=== PATIENT | male | born 1980 | race Hispanic/Latino ===

== ENCOUNTER 2019-01-26 15:13 | Emergency (ER) | payer OTHER ==
[2019-01-26] MEDS ORDERED: ACETAMINOPHEN EXTRA STRENGTH 500 MG TABLET ONE (15:35)
== END 2019-01-26 15:50 | disposition home or self-care (01) ==
LOC: EDH 15:13
DX: S63.91XA Sprain of unspecified part of right wrist and hand, initial encounter (principal); E11.9 Type 2 diabetes mellitus without complications; Z88.6 Allergy status to analgesic agent; Z72.0 Tobacco use; X50.1XXA Overexertion from prolonged static or awkward postures, initial encounter; Y93.89 Activity, other specified; Y92.89 Other specified places as the place of occurrence of the external cause; Y99.8 Other external cause status
CPT/HCPCS: 73130

== ENCOUNTER 2025-04-30 11:34 | Emergency (ER) | payer BC ==
[~2025-04-30] VITALS: Ht 188 cm; Wt 104.3 kg
--- NOTE | 2025-04-30 11:42 | ERN ---
ED Note History of Present Illness Stated Complaint: OTHER Time Seen by MD: 11:36 Dictation: PATIENT IS A 44-YEAR-OLD MALE COMING IN FOR MEDICAL CLEARANCE AGO TO [facility]. PER EMS AND THE PATIENT, HE DID NOT TAKE HIS BLOOD PRESSURE MEDICATIONS THIS MORNING. HIS DID NOT BRING HIM TO HIM IN THE [facility] WHERE HE IS CURRENTLY BEING HELD. HE HAS A HISTORY OF DIABETES HYPERTENSION. HE WAS SEEN HERE LAST NIGHT FOR THE SAME COMPLAINTS AND HAD A CARDIAC CLEARANCE WITH CARDIAC ENZYMES AND EKG X2 WITH LABS. HE IS NOW BEING CLEARED FOR [facility]. NO OTHER COMPLAINTS OF VOICE ACCEPT FOR HYPERTENSION. ADDITIONALLY PATIENT HAS A HISTORY OF ADD IN HIS ON ADDERALL WHICH CONTRIBUTES TO HIS HYPERTENSION. Allergies: Coded Allergies: aspirin (Unverified Allergy, Intermediate, 04/30/25) Past Medical History Past Medical History: Diabetes-Type II, Hypertension, Other (ADD) Surgical History: None RN Note Reviewed/Agreed w/PFSH: Yes Review of System Dictation CONSTITUTIONAL: NEGATIVE EXCEPT FOR HPI HEAD/FACE: NEGATIVE EXCEPT FOR HPI EENT: NEGATIVE EXCEPT FOR HPI RESPIRATORY: NEGATIVE EXCEPT FOR HPI GASTROINTESTINAL/ABDOMINAL: NEGATIVE EXCEPT FOR HPI GENITOURINARY: NEGATIVE EXCEPT FOR HPI MUSCULOSKELETAL: NEGATIVE EXCEPT FOR HPI INTEGUMENTARY: NEGATIVE EXCEPT FOR HPI NEUROLOGICAL/PSYCH: NEGATIVE EXCEPT FOR HPI HEMATOLOGIC/LYMPHATIC: NEGATIVE EXCEPT FOR HPI ALL SYSTEMS NEGATIVE, EXCEPT NOTED ABOVE. 13 POINT REVIEW OF SYSTEMS ASSESSED AND ALL NEGATIVE EXCEPT FOR ABOVE. Initial Vital Sign VS Vital Signs Date Time Temp Pulse Resp B/P (MAP) Pulse Ox O2 Delivery O2 Flow Rate FiO2 04/30/25 11:48 98.2 71 20 210/117 99 Room Air 0 04/30/25 13:44 21 Physical Exam Dictation VITAL SIGNS REVIEWED GENERAL APPEARANCE: ALERT, ORIENTED X 3, NO ACUTE DISTRESS, WELL DEVELOPED, NOURISHED. HEAD AND FACE: NON-TRAUMATIC. EYES: PERRL, PINK CONJUNCTIVAS, EYELID NO TRAUMA, ANTERIOR CHAMBER WITH ARCUS SENILIS. EARS: PINNAS INTACT AND NO SIGNS OF TRAUMA OR ERYTHEMA EAR CANALS CLEAR AND NO DISCHARGE TM NO ERYTHEMA NOSE: NO DISCHARGE, NO BLEEDING. OROPHARYNX: MOUTH NORMAL, TONGUE PINK, PHARYNX CLEAR,NO ERYTHEMA, TONSILS NO EXUDATES, NO ABSCESSES NOTED, MUCOUS MEMBRANE MOIST NECK: SUPPLE, NON-TENDER, NO THYROMEGALY, NO MASSES, NO JVD, NO BRUITS BREAST:DEFERRED CHEST:NO TENDERNESS, NO CREPITUS, NO PARADOXICAL MOVEMENT, NO RETRACTIONS LUNGS:CLEAR, WELL-VENTILATED, SYMMETRIC, NO RALES, NO WHEEZING, NO RHONCHI, NO STRIDOR, GOOD BREATH SOUNDS BILATERALLY HEART: REGULAR RATE, REGULAR RHYTHM, NO MURMUR, NO GALLOPS VASCULAR: NO PERIPHERAL EDEMA, ABDOMEN: SOFT, POSITIVE BOWEL SOUNDS, NONDISTENDED, NO GUARDING, NONTENDER, NO REBOUND, NO MASSES NO HEPATOMEGALY, NO SPLENOMEGALY, NO LEE'S SIGN, NO HERNIAS. RECTAL: DEFERRED GENITAL: DEFERRED NEUROLOGICAL: NORMAL SPEECH, MOTOR FUNCTION INTACT, SENSORY FUNCTION INTACT MUSCULOSKELETAL: NECK NONTENDER, FULL RANGE OF MOTION, BACK NONTENDER, FULL RANGE OF MOTION, EXTREMITIES: NONTENDER, FULL RANGE OF MOTION SKIN: COLOR PINK, DRY, NO TURGOR, NO RASH, NO LACERATIONS, NO ABRASIONS, NO CONTUSIONS. LYMPHATIC: DEFERRED Results (Laboratory/Radiology) Laboratory/Radiology Laboratory Tests Test 04/30/25 12:04 Troponin I High Sensitivity 14 ng/L (4-75) Labs Reviewed?: Yes EKG: (+) NSR EKG Comment: EKG NORMAL SINUS RHYTHM/HEART RATE 88/AXIS NORMAL/NO ECTOPY ED Course ED Course Orders Procedure Category Date Status Time 12 Lead Ekg Tracing- EKG 04/30/25 Complete Technical 11:37 Clonidine Hcl 0.2 Mg PHA 04/30/25 Complete Tablet (Catapres 0. 12:00 Troponin I High LAB 04/30/25 Complete Sensitivity 11:54 Clonidine Hcl 0.1 Mg PHA 04/30/25 Complete Tablet (Catapres 0. 12:30 Clonidine Hcl 0.1 Mg PHA 04/30/25 Complete Tablet (Catapres 0. 13:00 Current Medications Medications (Trade) Dose Ordered Sig/Angel Route PRN Reason Start Time Stop Time Status Last Admin Dose Admin Clonidine HCl (CATApres 0.1 mg TAB) 0.1 mg ONCE ONCE PO 04/30/25 12:30 04/30/25 12:31 DC 04/30/25 12:14 Clonidine HCl (CATApres 0.1 mg TAB) 0.1 mg ONCE ONCE PO 04/30/25 13:00 04/30/25 13:01 DC 04/30/25 12:56 Clonidine HCl (CATApres 0.2 MG TAB) 0.2 mg ONCE ONCE PO 04/30/25 12:00 04/30/25 12:09 DC Vital Signs Date Time Temp Pulse Resp B/P (MAP) Pulse Ox O2 Delivery O2 Flow Rate FiO2 04/30/25 13:44 98.2 72 20 155/79 99 Room Air* 0 21 04/30/25 12:56 192/94 04/30/25 12:14 165/92 04/30/25 11:48 98.2 71 20 210/117 99 Room Air 0 1345/BLOOD PRESSURE 155/79 CARDIAC WORKUP NEGATIVE WE WILL DISCHARGE PATIENT AND MEDICALLY CLEAR HIM FOR INCARCERATION AND [facility]. HEART Score Response (Comments) Value History: Low suspicion (0) 0 Age: 45-65yrs (+1) 1 Risk Factors: No known risk factors (0) 0 Total 1 Medical Decision Making MDM MEDICAL DISCHARGE MAKING BASED ON TROPONIN AND EKG WITH CONTROLLED PATIENT'S BLOOD PRESSURE PATIENT GIVEN CLONIDINE 0.2, BLOOD PRESSURE 155 OVER 79 AFTER TREATMENT. EKG NORMAL SINUS RHYTHM WITH TROPONIN NORMAL. MEDICALLY CLEARED FOR [facility] WITH CLONIDINE 0.2 B.I.D. DX & DISP Disposition: Discharge Departure Impression: Primary Impression: Accelerated hypertension Additional Impressions: Anxiety, Atypical chest pain, Medical clearance for incarceration Condition: Stable Scripts Clonidine HCl (Clonidine HCl) 0.2 Mg Tablet 1 TAB PO BID for 30 Days, #60 TAB 0 Refills Prov: BRENDAN SAHNI LEAD PRINCIPAL TECHNICAL ARCHITECT 04/30/25 Additional Instructions: FOLLOW-UP WITH PRIMARY CARE PROVIDER IN 1 TO 2 DAYS. TAKE MEDICATIONS DIRECTED HERE IN THE EMERGENCY ROOM. OKAY TO CONTINUE HOME MEDICATIONS UNLESS OTHERWISE DISCUSSED DURING YOUR VISIT IN THE EMERGENCY ROOM TODAY. RETURN TO YOUR NEAREST EMERGENCY ROOM IF SYMPTOMS WORSEN OR IF THERE IS NO IMPROVEMENT. CALL 911 IF YOU NEED IMMEDIATE ASSISTANCE. TAKE TYLENOL OR MOTRIN [id number] NEEDED AND IF NO CONTRAINDICATIONS ARE PRESENT. INCREASE ORAL HYDRATION. A WOUND CULTURE OR URINE CULTURE WAS ORDERED HERE IN THE EMERGENCY ROOM DEPARTMENT PLEASE FOLLOW-UP WITH PRIMARY CARE PROVIDER AND ADVISE THEM TO GET REPEAT PORTS FROM OUR FACILITY. IF YOU HAD ANY KAYLIN WRAP/SPLINTS THAT WERE APPLIED HERE, PLEASE DO NOT REMOVE THEM UNTIL YOU SEE YOUR PRIMARY CARE OR SPECIALTY. TAKE CLONIDINE DIRECTED TWICE A DAY FOR YOUR BLOOD PRESSURE. CONTINUE ALL YOUR MEDICATIONS AT HOME FOR YOUR DIABETES. MEDICALLY CLEARED FOR INCARCERATION AND TRAVEL. Referrals: SELF,REFERRAL (PCP) Time of Disposition: 13:48 I have reviewed the case, and I agree with, Diagnosis and Plan BRENDAN SAHNI NP Apr 30, 2025 11:42
--- NOTE | 2025-04-30 11:46 | EKG ---
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
[2025-04-30 13:44] VITALS: BP 155/79; PULSE 72; RESP 20; TEMP 98.2; O2SAT 99
[2025-04-30] MEDS ORDERED: CLON0.2T PO (13:49)
== END 2025-04-30 14:06 | disposition home or self-care (01) ==
LOC: EEVIPCON 11:34 → EDH 11:34
DX: I10 Essential (primary) hypertension (principal); F41.9 Anxiety disorder, unspecified; R07.89 Other chest pain; E11.9 Type 2 diabetes mellitus without complications; Z88.6 Allergy status to analgesic agent
CPT/HCPCS: 84484; 93005; 99284